=== PATIENT | female | born 1955 | race Caucasian/White ===

== ENCOUNTER → 2023-12-20 12:18 | Outpatient (REF) | payer MEDICARE, BC, SELFPAY | LOC: HWRAD 12:18 | PROVIDERS: ATTENDING PHYSICIAN Nurse Practitioner Family | DX: R10.9 Unspecified abdominal pain (principal) | CPT/HCPCS: 74176 ==

== ENCOUNTER → 2024-01-09 14:42 | Outpatient (REF) | payer MEDICARE, BC, SELFPAY | LOC: HWRCS 14:42 | PROVIDERS: ATTENDING PHYSICIAN Internal Medicine Cardiovascular Disease; FAMILY PHYSICIAN Family Medicine | DX: I10 Essential (primary) hypertension (principal) | CPT/HCPCS: 93306 ==

== ENCOUNTER → 2024-04-03 09:11 | Outpatient (REF) | payer MEDICARE, BC, SELFPAY | LOC: HWRAD 09:11 | PROVIDERS: ATTENDING PHYSICIAN Physician Assistant; FAMILY PHYSICIAN Family Medicine | DX: E04.2 Nontoxic multinodular goiter (principal) | CPT/HCPCS: 76536 ==

== ENCOUNTER → 2024-04-09 07:32 | Outpatient (REF) | payer MEDICARE, BC, SELFPAY ==
[2024-04-09 09:01] LABS: % Basophils 1.3 % (0-2); % Eosinophils 3.6 % (0-6); % Immature Granulocytes 0.4 % (0-0.5); % Lymphocytes 39.4 % (20.5-51.1); % Neutrophils 46.3 % (42.2-75.2); Absolute Basophils 0.1 10^3/uL (0-0.2); Absolute Eosinophils 0.2 10^3/uL (0-0.7); Absolute Lymphocytes 1.8 10^3/uL (1.2-3.4); Absolute Monocytes 0.4 10^3/uL (0.1-0.6); Absolute Neutrophils 2.2 10^3/uL (1.4-6.5); Hemoglobin 14.5 g/dL (12.0-16.0); Mean Corp Hgb Conc. 33.7 g/dL (33.0-37.0); Mean Corpuscular Hgb 29.6 pg (27.0-31.0); Mean Corpuscular Volume 87.8 fL (81.0-99.0); Mean Platelet Volume 9.5 fL (7.4-10.4); Nucleated Red Blood Cells % 0 %; Platelet Count 214 10^3/uL (130-400); Red Cell Dist. Width 13.8 % (11.5-14.5); White Blood Cell Count 4.7 10^3/uL (4.8-10.8)
[2024-04-09 09:45] LABS: ALT (SGPT) 20 U/L (0-35); AST (SGOT) 23 U/L (14-36); Albumin 4.4 g/dl (3.5-5.0); Alkaline Phosphatase 80 U/L (38-126); Blood Urea Nitrogen 15 mg/dl (7-17); Calcium 9.7 mg/dl (8.4-10.2); Carbon Dioxide 26 mmol/L (22-30); Chloride 103 mmol/L (98-107); Glucose 88 mg/dl (70-99); HDL Cholesterol 71 mg/dl; LDL Cholesterol, Calculated 85 mg/dl; Potassium 4.6 mmol/L (3.5-5.1); Sodium 142 mmol/L (135-145); Total Bilirubin 0.8 mg/dl (0.2-1.3); Total Cholesterol 169 mg/dl (50-199); Total Protein 7.1 g/dl (6.3-8.2); Triglyceride 66 mg/dl (10-149); Very Low Density Lipoprotein 13 mg/dl (0-30); eGFR > 60.00
[2024-04-09 10:06] LABS: Free T3 3.92 pg/ml (2.77-5.27)
[2024-04-09 10:19] LABS: TSH 0.29 uIU/ml (0.47-4.68)
[2024-04-10 22:33] LABS: Total T3 (Sendout) 149 ng/dL (80-200)
== END ==
LOC: REG 07:32
PROVIDERS: ATTENDING PHYSICIAN Nurse Practitioner Family; FAMILY PHYSICIAN Physician Assistant
DX: R30.0 Dysuria (principal); E78.5 Hyperlipidemia, unspecified; E04.1 Nontoxic single thyroid nodule; E05.90 Thyrotoxicosis, unspecified without thyrotoxic crisis or storm
CPT/HCPCS: 36415; 80053; 80061; 84439; 84443; 84480; 84481; 85025

== ENCOUNTER 2025-01-08 13:23 | Emergency (ER) | payer MEDICARE, BC, SELFPAY ==
[2025-01-08 13:37] VITALS: BP 132/75
[2025-01-08 13:59] LABS: Hematocrit 43.2 % (37.0-47.0); Hemoglobin 14.5 g/dL (12.0-16.0); Mean Corp Hgb Conc. 33.6 g/dL (33.0-37.0); Mean Corpuscular Volume 87.8 fL (81.0-99.0); Nucleated Red Blood Cells % 0 %; Platelet Count 254 10^3/uL (130-400); Red Cell Dist. Width 13.2 % (11.5-14.5)
[2025-01-08 14:15] LABS: ALT (SGPT) 21 U/L (0-35); AST (SGOT) 22 U/L (14-36); Albumin 4.7 g/dl (3.5-5.0); Alkaline Phosphatase 87 U/L (38-126); Blood Urea Nitrogen 21 mg/dl (7-17); Calcium 9.7 mg/dl (8.4-10.2); Carbon Dioxide 23 mmol/L (22-30); Chloride 107 mmol/L (98-107); Glucose 126 mg/dl (70-99); Lipase 35 U/L (23-300); Potassium 4.2 mmol/L (3.5-5.1); Sodium 138 mmol/L (135-145); Total Protein 7.3 g/dl (6.3-8.2); eGFR > 60.00
[2025-01-08 17:13] VITALS: BMI 27.3
[2025-01-08 17:14] VITALS: BP 101/56
[2025-01-08] MEDS: ZOFRAN 4 MG IV (17:55)
[2025-01-08] MEDS: NSS 500 IV (17:55)
--- NOTE | 2025-01-08 19:33 | ED.GENMED ---
History of Present Illness
General
Chief Complaint: Bowel Problem
Source: patient
Exam Limitations: none
Time Seen by Provider: 01/08/25 16:20
Nursing documentation reviewed up to this point in time: agreed with
History of Present Illness
History of Present Illness:
Patient is a 69-year-old female who presents to the ER for evaluation of constipation and. Patient reports last time it was Saturday or Saturday and she took 2 at home enemas without relief. She is complaining of some stool leakage and is having
difficulty urinating. She denies any nausea or vomiting. She does complain of some abdominal bloating.
Past History
Past History
ED Past Medical History: GERD, HTN, Hypercholesterolemia and Other (hiatal hernia); Negative Asthma or NIDDM
ED Past Surgical History: Appendectomy and Other (Tummy Tuck)
Social History
Tobacco: Non-smoker
Alcohol: Occasional
Drug: None
Personal:
Living: alone
Employment: Employed
Family History
Family History: Other (Noncontributory)
Phy Exam
General Physical Exam
General Presentation: no apparent distress
General age: appears stated age
General Skin: warm and dry
General Habitus: normal
General Mental: alert
General Hydration: appears well hydrated
Cardiovascular Exam
Cardiovascular Exam: regular rate/rhythm, no murmur and normal peripheral pulses
Pulmonary Exam
Pulmonary Exam: lungs clear and no respiratory distress
Gastrointestinal Exam
Gastrointestinal Exam: non tender, soft and other (+ brown stool in rectum soft heme negative )
Neurological Exam
Neurological Exam: alert and oriented x3
Musculoskeletal Exam
Musculoskeletal Exam: full ROM
Skin Exam
Skin Exam: normal color and warm/dry
Psychiatric Exam
Psychiatric Exam: normal mood/affect
Course
Orders/Labs/Results
Orders:
Orders
01/08/25 13:40
Obstruct Series W/PA Chest [CR Obstruct Series W/pa Chest] Urgent
Comment:
Reason For Exam: constipation
01/08/25 13:43
CBC/With Diff [Complete Blood Count/With Diff] Urgent
CMP [Comprehensive Metabolic Panel] Urgent
Lipase Urgent
01/08/25 16:49
Bladder Scan- Treatment ONCE
01/08/25 17:21
CT Abd/pelvis W Iv Cont Urgent
Comment:
Reason For Exam: abd pain , constipation
01/08/25 17:22
0.9% Sodium Chloride 500 ml [Nss] 500 ml IV BOLUS
Ondansetron Injectable [Zofran] 4 mg IV NOW STA
01/08/25 19:40
Hydrocortisone Sod Succinate [Solu-Cortef] 200 mg IV NOW STA
01/08/25 19:42
Diphenhydramine [Benadryl] 25 mg IV NOW STA
01/08/25 21:50
Enema- Treatment ONCE
Type: Milk of Molasses
Amount: x1
01/08/25 23:28
UA Reflex to Culture [Urinalysis Reflex To Culture] Urgent
Date Specimen was Collected: 01/08/25
Time Specimen was Collected: 23:03
Urine Microscopic Reflex Cult Urgent
Abnormal Lab Results
01/08/25 01/08/25
13:43 23:28
WBC 18.0 H 10^3/uL
(4.8-10.8)
Abs Immat Gran (auto) 0.1 H 10^3/uL
(0-0.05)
Absolute Neuts (auto) 16.2 H 10^3/uL
(1.4-6.5)
Absolute Lymphs (auto) 0.9 L 10^3/uL
(1.2-3.4)
Absolute Monos (auto) 0.8 H 10^3/uL
(0.1-0.6)
Neutrophils % 89.8 H %
(42.2-75.2)
Lymphocytes % 5.1 L %
(20.5-51.1)
BUN 21 H mg/dl
(7-17)
Glucose 126 H mg/dl
(70-99)
Ur Occult Blood Reflex 1+ A
(Negative)
Urine Albumin (Reflex) 2+ A
(Neg - Trace)
01/08/25 13:43
01/08/25 13:43
Vital Signs
Initial and Last Documented VS:
Initial Vital Signs
Temp Pulse Resp BP Pulse Ox
98.1 F 100 16 132/75 99
01/08/25 13:37 01/08/25 13:37 01/08/25 13:37 01/08/25 13:37 01/08/25 13:37
Last Documented Vital Signs
Temp Pulse Resp BP Pulse Ox
98.1 F 87 16 110/83 98
01/08/25 13:37 01/08/25 21:49 01/08/25 13:37 01/08/25 21:49 01/08/25 21:49
MDM/Problems Addressed
Differential Diagnosis Includes:
Not limited to constipation bowel obstruction impaction UTI
MDM/Problems Addressed:
Patient presented with constipation had some difficulty urinating. She is complaining of leakage of stool. On rectal exam she had obvious soft stool in the rectal area. The stool was brown heme-negative. She did not tolerate rectal exam very
well CAT scan was done and was negative for bowel obstruction does show fecal impaction with mild rectal wall thickening and perirectal stranding suggestive of stercoral colitis.
Patient was given enema here and did have significant relief of symptoms and had multiple bowel movements. I did repeat a rectal exam and there is no longer any stool in the rectum.
Patient with significant relief we will check urine and plan to discharge home with MiraLAX and Colace.
Urinalysis negative for infection
*Radiology
Radiology exam reviewed: radiology read reviewed
*Pulse Oximetry
SaO2: 99
Oxygen Mode of Delivery: Room air
Patient hypoxic: no
*Critical Care Note
Total Time (30-74mins, 75-104mins- exclusive of procedures): Not Applicable
ED Attending Note
-
Portions of this chart may have been created with voice recognition software.� Occasional wrong word or��sound alike� substitutions may have occurred due to the inherent limitations of voice recognition software.
Discharge Plan
Departure
Patient Disposition: Home (Routine Discharge)
Date of Disposition: 01/09/25
Time of Disposition: 00:03
Patient with high blood pressure during this ER visit?: No
Condition: Fair
Covid-19: Not Applicable
Discharge Problem:
Constipation, Fecal impaction
Instructions: Fecal Impaction (DC), Constipation in adults - ED (DC)
Prescriptions:
No Action
atorvastatin 10 MG tablet
10 mg PO QPM
amlodipine [Norvasc] 5 MG tablet
5 mg PO DAILY
metoprolol succinate 25 MG tablet extended release 24 hr
25 mg PO DAILY
esomeprazole magnesium [Nexium] 20 MG capsule,delayed release(DR/EC)
40 mg PO DAILY
loteprednol etabonate [Lotemax] 3.5 GM ointment
3.5 gm OP PRN PRN (Reason: dry eyes)
[id number] oil-D3 [Dry Eye Connell Benefits] 1 EACH capsule
4 ea PO DAILY
lorazepam 0.5 MG tablet
1 tab PO BID PRN (Reason: anxiety)
Referrals:
Randy Wade MD [Family Provider, Family Practice]
Activity Restrictions/Additional Instructions:
As discussed continue to increase fluids and increase fiber in your diet .
Start MiraLAX daily along with Colace stool softener. Follow-up close with your family doctor the next 2 to 3 days for reevaluation return if any worsening of symptoms
Interventions
Interventions:
*Risk Screen - Suicide Last Done: 01/08/25 17:14
*General Assessment Last Done: 01/08/25 17:14
*Neglect/Abuse Screening Last Done: 01/08/25 17:14
*ED- Fall Risk Assessment Last Done: 01/08/25 17:14
*ED COVID-19 Vaccine History Last Done: 01/08/25 23:35
ML-Hqhavw-Sjzkvjmtvl Assessment Last Done: 01/08/25 17:14
Discharge Date and Time
Print Language: YORUBA
[2025-01-08] MEDS: BENADRYL 25 MG IV (19:55)
[2025-01-08] MEDS: SOLU-CORTEF 200 MG IV (19:55)
[2025-01-08 21:49] VITALS: BP 110/83
[2025-01-08 23:38] LABS: Urine Character Clear (Clear)
[2025-01-08 23:50] LABS: Urine Red Blood Cell 0-2 /HPF (0-2); Urine White Cell None Seen /HPF (0-5)
[2025-01-09 00:30] VITALS: BP 105/72
== END 2025-01-09 00:20 | disposition home or self-care (01) ==
LOC: EMR 13:23
PROVIDERS: Emergency Medicine; Nurse Practitioner; EMERGENCY PHYSICIAN Emergency Medicine; FAMILY PHYSICIAN Family Medicine
DX: K56.41 Fecal impaction (principal); I10 Essential (primary) hypertension; E78.00 Pure hypercholesterolemia, unspecified; K21.9 Gastro-esophageal reflux disease without esophagitis; K44.9 Diaphragmatic hernia without obstruction or gangrene
CPT/HCPCS: 99284; 96374; 96375 ×2; 74022; 74177; 80053; 81003; 81015; 83690; 85025; Q9967

== ENCOUNTER → 2025-01-12 11:29 | Outpatient (REF) | payer MEDICARE, BC, SELFPAY ==
[2025-01-12 12:59] LABS: Hematocrit 41.4 % (37.0-47.0); Hemoglobin 13.8 g/dL (12.0-16.0); Mean Corp Hgb Conc. 33.3 g/dL (33.0-37.0); Mean Corpuscular Volume 88.5 fL (81.0-99.0); Nucleated Red Blood Cells % 0 %; Platelet Count 254 10^3/uL (130-400); Red Cell Dist. Width 13.0 % (11.5-14.5)
== END ==
LOC: RAD 11:29
PROVIDERS: ATTENDING PHYSICIAN Family Medicine
DX: D72.829 Elevated white blood cell count, unspecified (principal); K59.00 Constipation, unspecified
CPT/HCPCS: 36415; 74018; 85025